=== PATIENT | female | born 1930 | race Caucasian/White ===

== ENCOUNTER → 2017-03-24 | Outpatient (CLI) | payer OTHER ==
[~2017-03-24] MED LIST: ACETAMINOPHEN325 M1 PO; ALBUTEROL2.5 MG/0.5 INH; AMLODIPINE BESYL5 MG PO; ANTIVERT25 MG PO; APAP500 PO; ATIVAN0.5 MG PO; BENADRYL ALLERG25 MG PO; BISACODYL SUPP10 MG RECTAL; C-10001000 MG PO; CALCITRATE + V1 EACH PO; CALCIUM 500 +1 EAC5 PO; CARAFATE 11 GM/10 M1 PO; COLACE100 MG PO; CYCLOBENZAPRINE5 MG PO; DUONEB 2.5-0.5 M3 ML INH; HYDROCODON-ACE1 EAC7 PO; INDAPAMIDE2.5 MG PO; LIDODERM 5%1 PATC1 TRANSDERM; LINZESS145 MCG PO; LIPITOR10 MG PO; MEROPENEM500 MG IV; METOCLOPRAMID5 MG/ML IV; MILK OF MA400 MG/5 M PO; MIRALAX17 GM PO; MOBIC7.5 MG PO; NEXIUM40 MG PO; NICOTINE TRANSDE7 MG TD; NORCO 5-325 TA1 EACH PO; OCUVITE EXTRA1 EACH PO; OCUVITE LUTEIN1 EAC1; OCUVITE TABLET1 EAC1 PO; ONDANSETRON HCL4 M1 IV PUSH; PLAVIX 75 MG TA75 M1 PO; PLAVIX 75 MG TA75 MG PO; PREDNISONE 20 M20 MG PO; PRESERVISION A1 EAC2 PO; PROBIOTIC1 EAC1 PO; PROTONIX 440 MG/VIA1 IV PUSH; ROXICODONE5 M2 PO; TRAMADOL 50 MG50 MG PO; TYLENOL325 MG PO; UNICOMPLEX M TA1 TA1 PO; VENTOLIN HFA 1818 GM INH; VITAMIN D-32000 UNIT PO; VITAMIN D1000 UNIT PO; VOLTAREN GEL 1100 G2 TOP; ZOCOR 20 MG TAB20 M1 PO
== END ==
LOC: RAD 12:55
DX: M25.571 Pain in right ankle and joints of right foot (principal)